=== PATIENT | female | born 1970 | race Caucasian/White ===

== ENCOUNTER → 2023-12-05 16:13 | Outpatient (REF) | payer BC, SELFPAY | LOC: RAD 16:13 | PROVIDERS: ATTENDING PHYSICIAN Internal Medicine Hematology & Oncology | DX: N63.23 Unspecified lump in the left breast, lower outer quadrant (principal); Z12.31 Encounter for screening mammogram for malignant neoplasm of breast | CPT/HCPCS: 93971 ==

== ENCOUNTER → 2024-02-01 13:38 | Outpatient (REF) | payer BC, SELFPAY | LOC: WDC 13:38 | PROVIDERS: ATTENDING PHYSICIAN Internal Medicine | DX: N63.20 Unspecified lump in the left breast, unspecified quadrant (principal); N63.21 Unspecified lump in the left breast, upper outer quadrant | CPT/HCPCS: 76642; 77062; 77066 ==

== ENCOUNTER → 2024-04-25 17:51 | Outpatient (REF) | payer BC, SELFPAY | LOC: MRI 17:51 | PROVIDERS: ATTENDING PHYSICIAN Internal Medicine | DX: D18.00 Hemangioma unspecified site (principal); R90.82 White matter disease, unspecified; H90.A22 Sensorineural hearing loss, unilateral, left ear, with restricted hearing on the contralateral side; H93.A2 Pulsatile tinnitus, left ear; H81.02 Meniere's disease, left ear | CPT/HCPCS: 70544; 70553; A9575 ==

== ENCOUNTER → 2024-07-11 08:07 | Outpatient (REF) | payer BC, SELFPAY | LOC: WDC 08:07 | PROVIDERS: ATTENDING PHYSICIAN Internal Medicine | DX: R92.2 Inconclusive mammogram (principal); R92.8 Other abnormal and inconclusive findings on diagnostic imaging of breast | CPT/HCPCS: 76641 ==

== ENCOUNTER → 2024-12-12 15:41 | Outpatient (REF) | payer BC, SELFPAY | LOC: DHSLP 15:41 | PROVIDERS: ATTENDING PHYSICIAN Internal Medicine; FAMILY PHYSICIAN Internal Medicine | DX: G47.33 Obstructive sleep apnea (adult) (pediatric) (principal) | CPT/HCPCS: 95811 ==

== ENCOUNTER → 2025-06-19 14:03 | Outpatient (REF) | payer BC, SELFPAY | LOC: WDC 14:03 | PROVIDERS: ATTENDING PHYSICIAN Internal Medicine | DX: R92.30 Dense breasts, unspecified (principal); Z12.39 Encounter for other screening for malignant neoplasm of breast | CPT/HCPCS: 76641 ==

== ENCOUNTER → 2025-07-03 15:53 | Outpatient (REF) | payer BC, SELFPAY | LOC: WDC 15:53 | PROVIDERS: ATTENDING PHYSICIAN Obstetrics & Gynecology Gynecology; FAMILY PHYSICIAN Internal Medicine | DX: Z12.31 Encounter for screening mammogram for malignant neoplasm of breast (principal) | CPT/HCPCS: 77063; 77067 ==